=== PATIENT | female | born 1965 | race Two or more races ===

== ENCOUNTER 2018-06-14 12:36 | Outpatient (CLI) | payer OTHER ==
[~2018-06-14 12:36] MED LIST: CARAFATE1 G; KETO10TA2 PO; NORVASC5 MG; ORPH100T PO; PROTONIX40 MG; ZANTAC300 MG
== END 2018-06-14 12:49 | disposition home or self-care (01) ==
LOC: MAMO-SONO 12:36
DX: Z12.31 Encounter for screening mammogram for malignant neoplasm of breast (principal); N60.11 Diffuse cystic mastopathy of right breast; N60.12 Diffuse cystic mastopathy of left breast

== ENCOUNTER 2018-10-21 10:04 | Outpatient (CLI) | payer OTHER | END 2018-10-21 10:16 | disposition home or self-care (01) | LOC: NUCLEAR 10:04 | DX: C50.112 Malignant neoplasm of central portion of left female breast (principal); I10 Essential (primary) hypertension ==

== ENCOUNTER 2018-11-30 10:44 | Emergency (ER) | payer OTHER ==
[~2018-11-30] VITALS: Ht 160 cm; Wt 67.1 kg
== END 2018-11-30 17:41 | disposition home or self-care (01) ==
LOC: ER 10:44
DX: K21.9 Gastro-esophageal reflux disease without esophagitis (principal)

== ENCOUNTER 2019-08-09 17:18 | Emergency (ER) | payer OTHER ==
[~2019-08-09] VITALS: Ht 160 cm; Wt 67.1 kg
[2019-08-09] MEDS ORDERED: NEXIUM40 M1 (17:24)
[2019-08-09] MEDS ORDERED: SIMVASTATIN20 MG (17:25)
[2019-08-09] MEDS ORDERED: ANASTROZOLE1 MG (17:25)
== END 2019-08-09 21:23 | disposition home or self-care (01) ==
LOC: ER 17:18
DX: K21.9 Gastro-esophageal reflux disease without esophagitis (principal)

== ENCOUNTER 2021-07-29 08:00 | Outpatient (CLI) | payer OTHER ==
[~2021-07-29 08:00] MED LIST changes: +ANASTROZOLE1 MG; +NEXIUM40 M1; +SIMVASTATIN20 MG
== END 2021-07-29 08:30 | disposition home or self-care (01) ==
LOC: PPH VACUNA 08:00
PROVIDERS: ATTEND Emergency Medicine Pediatric Emergency Medicine
DX: Z23 Encounter for immunization (principal)

== ENCOUNTER 2022-03-17 13:21 | Outpatient (CLI) | payer OTHER | END 2022-03-17 13:22 | disposition home or self-care (01) | LOC: NUCLEAR 13:21 | PROVIDERS: ATTEND Internal Medicine | DX: M81.0 Age-related osteoporosis without current pathological fracture (principal); C50.112 Malignant neoplasm of central portion of left female breast; Z88.1 Allergy status to other antibiotic agents ==

== ENCOUNTER 2022-05-06 07:10 | Outpatient (CLI) | payer OTHER | END 2022-05-06 07:12 | disposition home or self-care (01) | LOC: LAB 07:10 | PROVIDERS: ATTEND Internal Medicine Cardiovascular Disease | DX: I10 Essential (primary) hypertension (principal) ==

== ENCOUNTER 2022-05-08 16:01 | Emergency (ER) | payer OTHER ==
[~2022-05-08] VITALS: Ht 160 cm; Wt 68.5 kg
[2022-05-08] MEDS ORDERED: CATAPRES0.3 MG PO (17:55)
== END 2022-05-08 18:00 | disposition home or self-care (01) ==
LOC: ER 16:01
DX: I16.9 Hypertensive crisis, unspecified (principal); Z88.8 Allergy status to other drugs, medicaments and biological substances

== ENCOUNTER → 2022-08-03 06:50 | Outpatient (CLI) | payer OTHER ==
[~2022-08-03 06:50] MED LIST changes: +CATAPRES0.3 MG PO
== END | disposition home or self-care (01) ==
LOC: LAB 06:50
PROVIDERS: ATTEND Internal Medicine Cardiovascular Disease
DX: I10 Essential (primary) hypertension (principal); E11.9 Type 2 diabetes mellitus without complications; E78.2 Mixed hyperlipidemia

== ENCOUNTER 2022-10-30 06:58 | Outpatient (CLI) | payer OTHER ==
[~2022-10-30 06:58] MED LIST changes: +FAMOTIDINE40 MG PO
== END 2022-10-30 07:17 | disposition home or self-care (01) ==
LOC: LAB 06:58
DX: C50.112 Malignant neoplasm of central portion of left female breast (principal)

== ENCOUNTER → 2022-12-21 06:32 | Outpatient (CLI) | payer OTHER | END | disposition home or self-care (01) | LOC: LAB 06:32 | PROVIDERS: ATTEND Internal Medicine Cardiovascular Disease | DX: I10 Essential (primary) hypertension (principal); E11.9 Type 2 diabetes mellitus without complications; E03.9 Hypothyroidism, unspecified; E78.2 Mixed hyperlipidemia; E55.9 Vitamin D deficiency, unspecified ==

== ENCOUNTER 2023-05-21 06:52 | Outpatient (CLI) | payer OTHER | END 2023-05-21 06:54 | disposition home or self-care (01) | LOC: LAB 06:52 | PROVIDERS: ATTEND Internal Medicine | DX: C50.112 Malignant neoplasm of central portion of left female breast (principal); I10 Essential (primary) hypertension; E78.2 Mixed hyperlipidemia; E11.9 Type 2 diabetes mellitus without complications ==

== ENCOUNTER → 2023-10-05 07:55 | Outpatient (CLI) | payer OTHER ==
[2023-10-05 08:55] LABS: HEMATOCRIT 38.8 % (36.0-45.00); HEMOGLOBIN 13.2 g/dL (12.0-15.00); MEAN CELL VOLUME 87.4 fL (80.00-100.00); MEAN CORPUSCULAR HEMOGLOBIN 29.7 pg (27.00-32.0); PLATELET COUNT 170 K/uL (150-450); RED BLOOD COUNT 4.45 M/uL (4.00-6.00); RED CELL DISTRIBUTION WIDTH 14.5 % (11.5-14.5)
[2023-10-05 09:18] LABS: URINE APPEARANCE Clear; URINE BILIRRUBIN Negative (NEGATIVE); URINE BLOOD Negative; URINE COLOR Yellow; URINE GLUCOSE Negative (NEGATIVE); URINE LEUKOCYTE Negative; URINE NITRATE Negative; URINE PROTEIN Negative (NEGATIVE); URINE UROBILINOGEN 0.2 E.U./dl
[2023-10-05 09:24] LABS: URINE EPITHELIAL CELLS 1.5 uL (0.0-38.8); URINE RBC 8.9 uL (0.0-20.8)
[2023-10-05 09:42] LABS: ALBUMIN 3.7 gm/dL (3.4-5.0); BILIRUBIN TOTAL 0.98 mg/dL (0.3-1.2); CALCIUM 9.2 mg/dL (8.5-10.1); CHOL HDL RATIO 3.4 (0-5.0); CREATININE SERUM 0.71 mg/dL (0.55-1.02); GFR 84.26; GLOBULINA 3.8 G/DL (2.4-3.5); POTASSIUM 4.42 mEq/L (3.5-5.1); T4 TOTAL 6.52 UG/DL (4.8-13.9); TOTAL PROTEIN 7.5 gm/dL (6.4-8.2); TSH 0.969 uIU/mL (0.358-3.74)
[2023-10-05 09:52] LABS: URINE WBC 1.5 uL (0.0-23.2)
== END | disposition home or self-care (01) ==
LOC: LAB 07:55
PROVIDERS: ATTEND Internal Medicine Cardiovascular Disease
DX: E11.9 Type 2 diabetes mellitus without complications (principal); E03.9 Hypothyroidism, unspecified; E78.2 Mixed hyperlipidemia; I10 Essential (primary) hypertension

== ENCOUNTER 2023-11-03 07:33 | Outpatient (CLI) | payer OTHER ==
[2023-11-03 09:12] LABS: ALBUMIN 3.9 gm/dL (3.4-5.0); BILIRUBIN TOTAL 1.05 mg/dL (0.3-1.2); CALCIUM 9.3 mg/dL (8.5-10.1); CREATININE SERUM 0.67 mg/dL (0.55-1.02); GFR 90.09; GLOBULINA 3.7 G/DL (2.4-3.5); POTASSIUM 4.06 mEq/L (3.5-5.1); TOTAL PROTEIN 7.6 gm/dL (6.4-8.2)
[2023-11-04 08:07] LABS: CA 15-3 14.3 U/mL (0.0-25.0)
[2023-11-04 14:06] LABS: CA 27.29 14.2 U/mL (0.0-38.6)
== END 2023-11-03 10:53 | disposition home or self-care (01) ==
LOC: LAB 07:33
DX: C50.112 Malignant neoplasm of central portion of left female breast (principal); Z88.1 Allergy status to other antibiotic agents; Z16.23 Resistance to quinolones and fluoroquinolones

== ENCOUNTER → 2024-05-08 09:58 | Outpatient (CLI) | payer OTHER | END | disposition home or self-care (01) | LOC: NUCLEAR 09:58 | PROVIDERS: ATTEND Internal Medicine | DX: M81.0 Age-related osteoporosis without current pathological fracture (principal); C50.112 Malignant neoplasm of central portion of left female breast; Z85.3 Personal history of malignant neoplasm of breast ==

== ENCOUNTER 2024-05-11 07:07 | Outpatient (CLI) | payer OTHER ==
[2024-05-11 08:03] LABS: HEMOGLOBIN 13.3 g/dL (12.0-15.00); MEAN CELL VOLUME 84.7 fL (80.00-100.00); MEAN CORPUSCULAR HEMOGLOBIN 28.9 pg (27.00-32.0); MEAN CORPUSCULAR HGB CONC 34.1 g/dl (32.0-36.0); PLATELET COUNT 166 K/uL (150-450); RED BLOOD COUNT 4.61 M/uL (4.00-6.00); RED CELL DISTRIBUTION WIDTH 14.6 % (11.5-14.5)
[2024-05-11 08:25] LABS: ALBUMIN 3.9 gm/dL (3.4-5.0); CALCIUM 9.4 mg/dL (8.5-10.1); CREATININE SERUM 0.7 mg/dL (0.55-1.02); GFR 85.65; GLOBULINA 3.8 G/DL (2.4-3.5); POTASSIUM 4.18 mEq/L (3.5-5.1); TOTAL PROTEIN 7.7 gm/dL (6.4-8.2)
[2024-05-12 09:13] LABS: CA 27.29 15.2 U/mL (0.0-38.6)
== END 2024-05-11 14:50 | disposition home or self-care (01) ==
LOC: LAB 07:07
PROVIDERS: ATTEND Internal Medicine
DX: C50.112 Malignant neoplasm of central portion of left female breast (principal)

== ENCOUNTER 2024-08-24 06:52 | Outpatient (CLI) | payer OTHER ==
[2024-08-24 07:33] LABS: URINE APPEARANCE Clear; URINE BILIRRUBIN Negative (NEGATIVE); URINE BLOOD Negative; URINE COLOR Yellow; URINE GLUCOSE Negative (NEGATIVE); URINE KETONE Negative (NEGATIVE); URINE LEUKOCYTE Trace; URINE NITRATE Negative; URINE PROTEIN Negative (NEGATIVE); URINE UROBILINOGEN 0.2 E.U./dl
[2024-08-24 07:35] LABS: MEAN CELL VOLUME 85.9 fL (80.00-100.00); MEAN CORPUSCULAR HEMOGLOBIN 28.7 pg (27.00-32.0); MEAN CORPUSCULAR HGB CONC 33.4 g/dl (32.0-36.0); PLATELET COUNT 185 K/uL (150-450); RED BLOOD COUNT 4.54 M/uL (4.00-6.00)
[2024-08-24 07:37] LABS: URINE BACTERIA 8.8 uL (0.0-1933); URINE EPITHELIAL CELLS 3.2 uL (0.0-38.8); URINE RBC 16.1 uL (0.0-20.8); URINE WBC 4.3 uL (0.0-23.2)
[2024-08-24 08:34] LABS: CALCIUM 9.2 mg/dL (8.5-10.1); CHOL HDL RATIO 4.1 (0-5.0); CREATININE SERUM 0.71 mg/dL (0.55-1.02); GFR 83.97; POTASSIUM 4.33 mEq/L (3.5-5.1); T4 TOTAL 6.54 UG/DL (4.8-13.9); TSH 0.847 uIU/mL (0.358-3.74)
== END 2024-08-24 14:32 | disposition home or self-care (01) ==
LOC: LAB 06:52
PROVIDERS: ATTEND Internal Medicine Cardiovascular Disease
DX: E11.9 Type 2 diabetes mellitus without complications (principal); I10 Essential (primary) hypertension; E03.9 Hypothyroidism, unspecified; E78.2 Mixed hyperlipidemia

== ENCOUNTER 2024-11-29 06:47 | Outpatient (CLI) | payer OTHER ==
[2024-11-29 07:44] LABS: HEMOGLOBIN 13.3 g/dL (12.0-15.00); MEAN CELL VOLUME 85.5 fL (80.00-100.00); MEAN CORPUSCULAR HEMOGLOBIN 29.2 pg (27.00-32.0); MEAN CORPUSCULAR HGB CONC 34.2 g/dl (32.0-36.0); PLATELET COUNT 182 K/uL (150-450); RED BLOOD COUNT 4.56 M/uL (4.00-6.00)
[2024-11-29 08:46] LABS: ALBUMIN 3.8 gm/dL (3.4-5.0); BILIRUBIN TOTAL 0.84 mg/dL (0.3-1.2); CALCIUM 9.5 mg/dL (8.5-10.1); CREATININE SERUM 0.71 mg/dL (0.55-1.02); GFR 83.97; GLOBULINA 3.5 G/DL (2.4-3.5); POTASSIUM 4.33 mEq/L (3.5-5.1); TOTAL PROTEIN 7.3 gm/dL (6.4-8.2)
[2024-11-30 06:04] LABS: CA 15-3 12.5 U/mL (0.0-25.0); CA 27.29 15.7 U/mL (0.0-38.6)
== END 2024-11-29 06:52 | disposition home or self-care (01) ==
LOC: LAB 06:47
DX: C50.112 Malignant neoplasm of central portion of left female breast (principal); D64.89 Other specified anemias

== ENCOUNTER 2025-01-30 06:52 | Outpatient (CLI) | payer OTHER ==
[2025-01-30 07:54] LABS: HEMATOCRIT 39.3 % (36.0-45.00); HEMOGLOBIN 13.2 g/dL (12.0-15.00); MEAN CELL VOLUME 85.7 fL (80.00-100.00); MEAN CORPUSCULAR HEMOGLOBIN 28.7 pg (27.00-32.0); MEAN CORPUSCULAR HGB CONC 33.5 g/dl (32.0-36.0); PLATELET COUNT 188 K/uL (150-450); RED BLOOD COUNT 4.59 M/uL (4.00-6.00); RED CELL DISTRIBUTION WIDTH 15.3 % (11.5-14.5)
[2025-01-30 08:02] LABS: PH,URINE 6.5 (5.0-8.0); URINE APPEARANCE Clear; URINE BILIRRUBIN Negative (NEGATIVE); URINE BLOOD Negative; URINE COLOR Yellow; URINE GLUCOSE Negative (NEGATIVE); URINE KETONE Negative (NEGATIVE); URINE LEUKOCYTE Negative; URINE NITRATE Negative; URINE PROTEIN Negative (NEGATIVE); URINE UROBILINOGEN 0.2 E.U./dl
[2025-01-30 08:05] LABS: URINE RBC 3.5 uL (0.0-20.8)
[2025-01-30 08:09] LABS: URINE BACTERIA 3.6 uL (0.0-1933); URINE EPITHELIAL CELLS 0.7 uL (0.0-38.8); URINE WBC 1.2 uL (0.0-23.2)
[2025-01-30 08:43] LABS: ALBUMIN 3.6 gm/dL (3.4-5.0); BILIRUBIN TOTAL 0.77 mg/dL (0.3-1.2); CALCIUM 8.9 mg/dL (8.5-10.1); CHOL HDL RATIO 3.5 (0-5.0); CREATININE SERUM 0.68 mg/dL (0.55-1.02); GFR 88.26; GLOBULINA 3.7 G/DL (2.4-3.5); POTASSIUM 4.33 mEq/L (3.5-5.1); T4 TOTAL 7.07 UG/DL (4.8-13.9); TOTAL PROTEIN 7.3 gm/dL (6.4-8.2); TSH 0.918 uIU/mL (0.358-3.74)
[2025-01-30 11:01] LABS: T3 TOTAL 0.881 ng/ml (0.846-2.02); VITAMIN D3 25 HYDROXY 25.92 ng/ml (30-120)
== END 2025-01-30 06:56 | disposition home or self-care (01) ==
LOC: LAB 06:52
PROVIDERS: ATTEND Internal Medicine Cardiovascular Disease
DX: I10 Essential (primary) hypertension (principal); E11.9 Type 2 diabetes mellitus without complications; E03.9 Hypothyroidism, unspecified; E78.2 Mixed hyperlipidemia; D64.9 Anemia, unspecified; E55.9 Vitamin D deficiency, unspecified; M81.0 Age-related osteoporosis without current pathological fracture

== ENCOUNTER 2025-07-30 07:11 | Outpatient (CLI) | payer OTHER ==
[2025-07-30 08:05] LABS: BASO % 0.3 % (0.1-1.2); EOS # 0.01 (0.04-0.54); EOS % 0.3 % (0.7-7.0); LYMPH # 1.75 (1.18-3.74); LYMPH % 45.5 % (19.3-53.1); MEAN PLATELET VOLUME 10.80 fl (9.4-12.4); MONO # 0.29 (0.24-0.82); MONO % 7.5 % (4.7-12.5); NEUT # 1.79 (1.56-6.13); NEUT % 46.4 % (34.0-71.1); RED CELL DISTRIBUTION WIDTH 14.5 % (11.6-14.4)
[2025-07-30 08:25] LABS: URINE APPEARANCE Clear; URINE BILIRRUBIN Negative (NEGATIVE); URINE BLOOD Negative; URINE COLOR Yellow; URINE GLUCOSE Negative (NEGATIVE); URINE KETONE Negative (NEGATIVE); URINE LEUKOCYTE Negative; URINE NITRATE Negative; URINE PROTEIN Negative (NEGATIVE); URINE UROBILINOGEN 0.2 E.U./dl
[2025-07-30 08:27] LABS: URINE BACTERIA 20.4 uL (0.0-1933); URINE EPITHELIAL CELLS 1.6 uL (0.0-38.8); URINE RBC 10.9 uL (0.0-20.8)
[2025-07-30 08:47] LABS: URINE CAST 0.00 uL (0.0-1.40); URINE WBC 1.3 uL (0.0-23.2)
[2025-07-30 09:18] LABS: ALT/SGPT 29.0 U/L (12-78); AST/SGOT 17.0 U/L (15-37); BILIRUBIN TOTAL 0.71 mg/dL (0.3-1.2); BUN CREA RATIO 17.0 (7.0-25.0); CHOL HDL RATIO 3.7 (0-5.0); CREATININE SERUM 0.65 mg/dL (0.55-1.02); GFR 92.66; GLOBULINA 3.7 G/DL (2.4-3.5); GLUCOSE FASTING 100.0 mg/dL (65-100); HDL 60.0 mg/dl (40-60); LDL 139.0 mg/dl (0-130); OSMOLALITY SERUM 284.0 MOSM/KG (275-295); T4 TOTAL 6.99 UG/DL (4.8-13.9); TSH 0.945 uIU/mL (0.358-3.74); VLDL 24.0 (0-39)
== END 2025-07-30 07:23 | disposition home or self-care (01) ==
LOC: LAB 07:11
PROVIDERS: ATTEND Internal Medicine Cardiovascular Disease
DX: I10 Essential (primary) hypertension (principal); E11.9 Type 2 diabetes mellitus without complications; E03.9 Hypothyroidism, unspecified; E78.2 Mixed hyperlipidemia